=== PATIENT | male | born 1985 | race African-American/Black ===

== ENCOUNTER 2019-04-26 19:35 | Emergency (ER) | payer BC ==
[~2019-04-26] VITALS: Ht 185.4 cm; Wt 113.4 kg
[2019-04-26 19:39] VITALS: BP 127/54
[2019-04-26] MEDS ORDERED: PROAIR HFA8.5 GM INH ×2 (19:44→20:08)
[2019-04-26] MEDS ORDERED: NEBULIZER MISCELL (19:45)
[2019-04-26] MEDS ORDERED: PREDNISONE 20 M20 M1 PO (20:08)
== END 2019-04-26 20:23 | disposition home or self-care (01) ==
LOC: ER 19:35
DX: J45.901 Unspecified asthma with (acute) exacerbation (principal)